=== PATIENT | male | born 1930 | race Caucasian/White ===

== ENCOUNTER 2017-01-11 08:16 | Emergency (ER) | payer MEDICARE ==
[2017-01-11 08:20] VITALS: BP 174/78
[2017-01-11 08:44] LABS: BASO # 0.1 x10^3/uL (0.0-0.2); BASO % 1 % (0-3); EOS # 0.2 x10^3/uL (0.0-0.7); EOS % 3 % (0-3); HEMATOCRIT 28.1 % (39.0-53.0); HEMOGLOBIN 9.4 g/dL (13.0-17.5); LYMPH # 1.5 x10^3/uL (1.0-4.8); LYMPH % 24 % (24-48); MEAN CORPUSCULAR HEMOGLOBIN 33 pg (25-35); MEAN CORPUSCULAR HGB CONC 33 g/dL (31-37); MEAN CORPUSCULAR VOLUME 100 fL (79-100); MONO # 0.6 x10^3/uL (0.0-1.1); MONO % 10 % (0-9); NEUT # 3.8 x10^3uL (1.8-7.7); NEUT % 62 % (31-73); PLATELET COUNT 159 x10^3/uL (140-400); RED BLOOD COUNT 2.82 x10^6/uL (4.30-5.70); RED CELL DISTRIBUTION WIDTH 14.7 % (11.5-14.5); WHITE BLOOD COUNT 6.1 x10^3/uL (4.0-11.0)
[2017-01-11 08:48] LABS: CALCIUM 8.5 mg/dL (8.5-10.1); CREATININE 2.6 mg/dL (0.7-1.3); GFR 23.4; MAGNESIUM 1.6 mg/dL (1.8-2.4); POTASSIUM 5.5 mmol/L (3.5-5.1)
--- NOTE | 2017-01-11 09:13 | RAD ---
Clinical indications: Altered mental status is morning. Comparison: None available. Technique: Noncontrast axial cross sectional scanning of the head was performed. PQRS Compliance Statement: One or more of the following individualized dose reduction techniques were utilized for this examination: 1. Automated exposure control 2. Adjustment of the mA and/or kV according to patient size 3. Use of iterative reconstruction technique Comparison: None available. Findings: No acute intracranial hemorrhage or midline shift or mass-effect or hydrocephalus or extra-axial fluid collection is seen. There is moderate bilateral periventricular white matter hypodensity consistent with chronic small vessel ischemic disease in this age group. Generalized cerebral atrophy is seen. Ventriculomegaly is seen commensurate with the amount of cerebral atrophy. No skull fracture or pneumocephalus is seen. No opacification of the mastoid sinuses or the paranasal sinuses is seen. There is a small polyp of the anterior wall of the left maxillary sinus measuring 9 mm. The maxillary sinuses are not completely seen in this study. Impression: No acute intracranial hemorrhage is seen. Moderate chronic small vessel ischemic disease of the white matter.
[2017-01-11 09:39] LABS: BILIRUBIN,URINE NEG (NEG); CLARITY,URINE CLOUDY; COLOR,URINE YELLOW; GLUCOSE,URINE NEG (NEG)
[2017-01-11 09:40] LABS: BACTERIA,URINE MANY /HPF (0-FEW); NITRITE,URINE NEG (NEG); RBC,URINE RARE /HPF (0-2); UROBILINOGEN,URINE 0.2 mg/dL (0.2 mg/dL); WBC,URINE >40 /HPF (0-4)
[2017-01-11] MEDS ORDERED: cefTRIAXone SODIUM 1 GM VIAL IV ONE (10:41)
[2017-01-11] MEDS ORDERED: IV NORMAL SALINE 50ML 50 ML ONE (10:42)
--- NOTE | 2017-01-11 11:07 | PHYS DOC ---
Past History Past Medical History: Other Past Surgical History: Other Alcohol Use: None Drug Use: None Adult General Chief Complaint Chief Complaint: LOSS OF CONSCIOUSNESS HPI HPI Patient is a 86 year old M who presents with decreased level of consciousness. Jose has dementia at baseline however he is able to verbalize and understand spoken words. He does live at a half-way. This morning around 5:30 AM Jose received his normal Ultram for pain. Thereafter Jose became less responsive. He continued to move his extremities and open his eyes. However he has been unable to verbalize since that time. Review of Systems Review of Systems Unable to obtain due to current condition Family History Family History Noncontributory Current Medications Current Medications Medications reviewed Current Medications Medications (Trade) Dose Ordered Sig/Misti Start Time Stop Time Status Last Admin Dose Admin Ceftriaxone Sodium 1 gm/ Sodium Chloride 50 ml @ 100 mls/hr 1X ONCE 01/11/17 10:00 01/11/17 10:29 UNV Ceftriaxone Sodium (Rocephin) 1 gm STK-MED ONCE 01/11/17 10:41 01/11/17 10:42 DC Magnesium Sulfate/ Dextrose 100 ml @ 100 mls/hr 1X ONCE 01/11/17 09:15 01/11/17 10:14 UNV Sodium Chloride 50 ml @ As Directed STK-MED ONCE 01/11/17 10:42 01/11/17 10:43 DC Allergies Allergies Allergies Coded Allergies Type Severity Reaction Last Updated Verified No Known Drug Allergies 01/11/17 No Physical Exam Physical Exam Constitutional: Well developed, well nourished, no acute distress, non-toxic appearance. [] HENT: atraumatic Eyes: PERRLA, EOMI, conjunctiva normal, no discharge. [] Neck: Normal range of motion, no tenderness, supple, no stridor. [] Cardiovascular:Heart rate regular rhythm, Lungs & Thorax: Bilateral breath sounds clear to auscultation [] exam limited due to decreased level of consciousness Abdomen: Bowel sounds normal, soft, no tenderness, no masses, no pulsatile masses. [] Skin: Warm, dry, no erythema, no rash. [] Extremities: No tenderness, no cyanosis, no clubbing, 2-3+ pitting edema in bilateral lower extremities Neurologic: No verbal response to any stimulus. Open his eyes spontaneously. Moves all limbs spontaneously Psychologic: Unable to assess Current Patient Data Vital Signs Vital Signs Date Time Temp Pulse Resp B/P (MAP) Pulse Ox O2 Delivery O2 Flow Rate FiO2 01/11/17 08:20 97.6 55 15 96 Room Air Lab Results Laboratory Tests Test 01/11/17 08:25 01/11/17 09:20 White Blood Count 6.1 x10^3/uL (4.0-11.0) Red Blood Count 2.82 x10^6/uL (4.30-5.70) L Hemoglobin 9.4 g/dL (13.0-17.5) L Hematocrit 28.1 % (39.0-53.0) L Mean Corpuscular Volume 100 fL (79-100) Mean Corpuscular Hemoglobin 33 pg (25-35) Mean Corpuscular Hemoglobin Concent 33 g/dL (31-37) Red Cell Distribution Width 14.7 % (11.5-14.5) H Platelet Count 159 x10^3/uL (140-400) Neutrophils (%) (Auto) 62 % (31-73) Lymphocytes (%) (Auto) 24 % (24-48) Monocytes (%) (Auto) 10 % (0-9) H Eosinophils (%) (Auto) 3 % (0-3) Basophils (%) (Auto) 1 % (0-3) Neutrophils # (Auto) 3.8 x10^3uL (1.8-7.7) Lymphocytes # (Auto) 1.5 x10^3/uL (1.0-4.8) Monocytes # (Auto) 0.6 x10^3/uL (0.0-1.1) Eosinophils # (Auto) 0.2 x10^3/uL (0.0-0.7) Basophils # (Auto) 0.1 x10^3/uL (0.0-0.2) Sodium Level 138 mmol/L (136-145) Potassium Level 5.5 mmol/L (3.5-5.1) H Chloride Level 106 mmol/L (98-107) Carbon Dioxide Level 26 mmol/L (21-32) Anion Gap 6 (6-14) Blood Urea Nitrogen 59 mg/dL (8-26) H Creatinine 2.6 mg/dL (0.7-1.3) H Estimated GFR (Cockcroft-Gault) 23.4 Glucose Level 82 mg/dL (70-99) Calcium Level 8.5 mg/dL (8.5-10.1) Magnesium Level 1.6 mg/dL (1.8-2.4) L Urine Collection Type Unknown Urine Color Yellow Urine Clarity Cloudy Urine pH 6.5 Urine Specific [place] 1.010 Urine Protein 100 mg/dl (NEG-TRACE) Urine Glucose (UA) Neg mg/dL (NEG) Urine Ketones (Stick) Neg mg/dL (NEG) Urine Blood Mod (NEG) Urine Nitrite Neg (NEG) Urine Bilirubin Neg (NEG) Urine Urobilinogen Dipstick 0.2 mg/dL (0.2 mg/dL) Urine Leukocyte Esterase Large (NEG) Urine RBC Rare /HPF (0-2) Urine WBC >40 /HPF (0-4) Urine Squamous Epithelial Cells None /LPF Urine Bacteria Many /HPF (0-FEW) Urine Mucus Slight /LPF EKG EKG Sinus bradycardia with left anterior fascicular block Radiology/Procedures Radiology/Procedures Head CT showed no acute disease Course & Med Decision Making Course & Med Decision Making Pertinent Labs and Imaging studies reviewed. (See chart for details) Jose did receive Rocephin 1 g IV prior to transfer. He was transferred in stable condition. Dragon Disclaimer Dragon Disclaimer This chart was dictated in whole or in part using Voice Recognition software in a busy, high-work load, and often noisy Emergency Department environment. It may contain unintended and wholly unrecognized errors or omissions. Departure Departure: Impression: Primary Impression: Altered mental status, unspecified Additional Impression: UTI (urinary tract infection) Referrals: WOODY MONK MD (PCP) Problem Qualifiers Primary Impression: Altered mental status, unspecified Altered mental status type: delirium Qualified Codes: R41.0 - Disorientation , unspecified Additional Impression: UTI (urinary tract infection) Urinary tract infection type: catheter-associated UTI Indwelling urinary catheter type: indwelling urethral catheter Encounter type: initial encounter Qualified Codes: T83.511A - Infection and inflammatory reaction due to indwelling urethral catheter, initial encounter; N39.0 - Urinary tract infection, site not specified MARTÍN VALENTIN MD Jan 11, 2017 11:07
[2017-01-11] MEDS ORDERED: MAGNESIUM SULFATE 1GM 100 ML IV ONE (11:15)
--- NOTE | 2017-01-12 03:27 | EKG ---
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
== END 2017-01-11 11:37 | disposition short-term general hospital (02) ==
LOC: ER 08:16
DX: R41.0 Disorientation, unspecified (principal); T83.511A Infection and inflammatory reaction due to indwelling urethral catheter, initial encounter; N39.0 Urinary tract infection, site not specified; F03.90 Unspecified dementia, unspecified severity, without behavioral disturbance, psychotic disturbance, mood disturbance, and anxiety
CPT/HCPCS: 36415; 70450; 80048; 81001; 83735; 85025; 93005; 96365; 99285; J0696

== ENCOUNTER 2017-04-18 20:51 | Inpatient (IN) | payer MEDICARE ==
[~2017-04-18] VITALS: Ht 185.4 cm; Wt 99.0 kg
[2017-04-18 21:52] LABS: BASO # 0.1 x10^3/uL (0.0-0.2); BASO % 1 % (0-3); EOS # 0.4 x10^3/uL (0.0-0.7); EOS % 7 % (0-3); HEMATOCRIT 28.6 % (39.0-53.0); HEMOGLOBIN 9.4 g/dL (13.0-17.5); LYMPH # 1.6 x10^3/uL (1.0-4.8); LYMPH % 27 % (24-48); MEAN CORPUSCULAR HEMOGLOBIN 33 pg (25-35); MEAN CORPUSCULAR HGB CONC 33 g/dL (31-37); MEAN CORPUSCULAR VOLUME 100 fL (79-100); MONO # 0.7 x10^3/uL (0.0-1.1); MONO % 11 % (0-9); NEUT # 3.1 x10^3uL (1.8-7.7); NEUT % 54 % (31-73); PLATELET COUNT 180 x10^3/uL (140-400); RED BLOOD COUNT 2.86 x10^6/uL (4.30-5.70); RED CELL DISTRIBUTION WIDTH 13.8 % (11.5-14.5); WHITE BLOOD COUNT 5.8 x10^3/uL (4.0-11.0)
[2017-04-18 22:09] LABS: ALBUMIN 2.5 g/dL (3.4-5.0); CALCIUM 8.8 mg/dL (8.5-10.1); CREATININE 3.3 mg/dL (0.7-1.3); DIRECT BILIRUBIN 0.1 mg/dL (0.0-0.2); GFR 17.7; POTASSIUM 4.8 mmol/L (3.5-5.1); TOTAL BILIRUBIN 0.2 mg/dL (0.2-1.0); TOTAL PROTEIN 6.4 g/dL (6.4-8.2)
[2017-04-18 22:09] LABS: BARBITURATES NEG (NEG); BENZODIAZEPINES NEG (NEG); CANNABINOIDS NEG (NEG); COCAINE NEG (NEG); METHADONE NEG (NEG); OPIATES NEG (NEG); PHENCYCLIDINE NEG (NEG)
[2017-04-18 22:11] LABS: ACETAMIN 4.3 mcg/mL (10-30); ETHANOL < 10 mg/dL (0-10); SALIC 1.3 mg/dL (2.8-20.0)
[2017-04-18 22:12] LABS: AMPHETAMINE/METHAMPHETAMINE NEG (NEG)
[2017-04-18 22:13] LABS: BILIRUBIN,URINE NEG (NEG); CLARITY,URINE HAZY; COLOR,URINE YELLOW; GLUCOSE,URINE NEG (NEG)
[2017-04-18 22:14] LABS: BACTERIA,URINE MOD /HPF (0-FEW); NITRITE,URINE NEG (NEG); SQUAMOUS EPITHELIAL CELL,UR OCC /LPF; UROBILINOGEN,URINE 0.2 mg/dL (0.2 mg/dL)
[2017-04-18 22:15] LABS: AMORPHOUS SEDIMENT,UR PRESENT /HPF
--- NOTE | 2017-04-18 22:35 | PHYS DOC ---
General Chief Complaint: SUICDAL IDEATION Stated Complaint: SI Time Seen by MD: 20:56 Source: patient, EMS, other ([facility] nurse Yulia) Exam Limitations: clinical condition Problems: History of Present Illness Initial Comments Patient is an 87-year-old male brought to the ED from [facility] after being deferred by the [place] hospital for evaluation of suicidal ideation. Very little information sent from a [facility]. EMS reports that the patient expressed that she wanted to to usp staff tonight and restated this wish to EMS. They attempted to take the patient to the [place] who diverted the patient to this facility. On ED arrival the patient is noted to talk very loudly and at first appears angry however he is simply very hard of hearing. He was asked multiple times if he wanted to each time stating that yes in fact he did want to . When asked if he had a plan he denied having such, "hell yeah I want to but it's not like I'm going to go to kill myself." The patient does appear to have a depressed affect, he appears to be overall lucid however does vacillate into periods of apparent confusion. When asked if he is having any discomfort and complains of pain only at his left temporal region where he underwent recent skin cancer biopsies or removals. Material sent from the [facility] were limited and not much was known about the patient upon arrival. He did specifically deny any chest pain, shortness of breath, nausea vomiting diaphoresis arm or neck symptoms. skilled nursing records indicate that the patient took eliquis up until March 29 when it was discontinued for unknown reason. Records also indicate that the patient takes 20 mg of Lasix daily, there are no records of prior congestive heart failure or coronary artery disease. ED vitals: 97.4, 64, 20, 146/57, 97% room air 2347: I personally spoke with the patient's [facility] caregiver over the phone Rachana, she did reveal that the patient is a full DNR and that the patient requests was discontinued for several reasons including his facial skin procedures as well as his physicians felt it was no longer needed as the patient had exhibited some "arrhythmias" in the past however none recently. Timing/Duration: unsure Severity: mild Modifying Factors: improves with other Associated Symptoms: other Allergies: Coded Allergies: No Known Drug Allergies (Unverified , 01/11/17) Past Medical History Medical History: other (major depressive disorder, chronic kidney disease stage IV, DVT, retinopathy, glaucoma, macular degeneration, B12 deficiency, dementia, hypertension, generalized weakness, neurogenic bladder, UTI, difficulty walking, frequent falls) Surgical History: other (left sided facial skin cancer biopsies versus removals otherwise unknown past surgical history) Social History Smoker: other (unknown smoking history) Alcohol: other (unknown alcohol history) Drugs: other (unknown drug history) Review of Systems Constitutional: denies chills, denies fever Respiratory: denies cough, denies orthopnea, denies shortness of breath, denies wheezing Cardiovascular: denies chest pain, denies palpitations Gastrointestinal: denies diarrhea, denies vomiting Genitourinary: denies discharge, denies hematuria Musculoskeletal: denies back pain, denies joint swelling, denies neck pain Psychiatric/Neurological: see HPI Hematologic/Lymphatic: see HPI All Other Systems: Reviewed and Negative (accuracy of review of systems is in question with patient's dementia) Physical Exam General Appearance: no apparent distress (patient's only complaint is pain at the site of recent facial procedures) Ear, Nose, Throat: normal ENT inspection (very hard of hearing), normal pharynx , other (2 Band-Aids over left religious at sites of recent skin cancer biopsies/ removals) Neck: non-tender, supple Respiratory: other (slight rales at the bases left greater than right with good air movement and no wheezes no accessory muscle use or respiratory distress , chest nontender) Cardiovascular: normal peripheral pulses, regular rate, rhythm Gastrointestinal: non tender, soft Back: no CVA tenderness, no vertebral tenderness Extremities: non-tender, pelvis stable, other (one plus pitting lower extremity edema, no calf tenderness) Neurologic/Psychiatric: salvage clerk II-XII nml as tested, no motor/sensory deficits, alert, depressed affect ("hell yeah I want to , it's not like I'm going to go kill myself or any thing"), other (patient very hard of hearing, when things are explained to him he is cooperative and no stated side plan, confused at times no lateralizing neuro deficits) Skin: normal color, warm/dry Orders, Labs, Meds EKG: Normal sinus rhythm 64 bpm, baseline wander artifact in the anterior leads with artifact versus ST segment elevation in V1 as well as ST segment elevation in V2 interpreted by me. I did discuss this EKG finding with body shop floorperson business objects developer Dr. Chacon however he is in agreement that the patient is not a candidate for the cardiac catheter lab. Due to the EKG findings I did add cardiac enzymes to the already pending SBH/SI studies. AP chest: Although portable study cardiac silhouette does appear to be mildly enlarged, small left-sided pleural effusion with cephalization of the vessels. Interpreted by me. BNP will be added to labs. 2242: Labs reviewed, although not a clean catch UTI suspected. Cephalexin by mouth given, patient is medically cleared for telemetry psych evaluation of suicidality. That evaluation has been requested. 2339: I consulted Dr. Chacon via phone to discuss patient's troponin 0.200. BNP was pending at that time, Dr. Wilson recommended heparinization and follow labs as there was not much that could be done. Requested that I admit to HOSPITALIST and he agreed to see the patient tomorrow as consultation. Tele- psych evaluation put on hold for now. 2355: I discussed the patient with body shop floorperson hospitalist Dr. Wei. After thorough discussion of the patient's known history, ED presentation, and the ED results. He recommends inpatient ICU admission and is agreeable to heparin bolus and drip. He was also agreeable with the Rocephin intravenously for what appears to be a UTI even though specimen contaminated with squamous cells. A trial of Lasix with cardiology and psychiatry consultations for tomorrow. Pertinent labs: Hemoglobin 9.4 normocytic, BUN 70, creatinine 3.3, troponin 0.200, BNP 3195, albumin 2.5, urinalysis with squamous epithelial contamination and grossly positive for products of infection Patient received heparin bolus and initiation of heparin drip as well as 1 g of Rocephin intravenously, and 20 mg of Lasix throughout the ED course. Impressions: Suicidal ideation Elevated troponin and questionable STEMI EKG changes not a candidate for catheter lab and currently heparinized Acute on chronic CHF receiving Lasix Urinary tract infection on Rocephin Chronic kidney disease stage IV Moderate to severe protein malnutrition Dementia Normocytic anemia Departure Time of Disposition: 23:55 Disposition: 09 ADMITTED INPATIENT Condition: GUARDED Additional Instructions: Inpatient ICU admission Dr. Wei is accepting. TOYA YANEZ DO Apr 18, 2017 22:35
[2017-04-18] MEDS ORDERED: CEPHALEXIN 250 MG CAPSULE PO ONE (23:15)
[2017-04-18 23:23] LABS: VAL ACID 13 mcg/mL (50-100)
--- NOTE | 2017-04-18 23:47 | EKG ---
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
[2017-04-19] VITALS (19 sets, daily range): BP systolic 105–187; BP diastolic 55–89
[2017-04-19] MEDS ORDERED: ONDANSETRON PF 4 MG/2 ML VIAL. IV PRN (00:15)
[2017-04-19] MEDS ORDERED: ACETAMINOPHEN 325 MG TABLET PO PRN (00:15)
[2017-04-19] MEDS ORDERED: MORPHINE SULFATE 2 MG/ML DISP.SYRIN. IV PRN (00:15)
[2017-04-19] MEDS ORDERED: NITROGLYCERIN SUBLINGUAL 0.4 MG BOTTLE OF 25. SL PRN (00:15)
[2017-04-19] MEDS ORDERED: cefTRIAXone IV Push 1 GM VIAL. IVP ONE (00:38)
[2017-04-19] MEDS ORDERED: HEPARIN for IV BOLUS 10,000 UNIT/10 ML VIAL. IV ONE (00:45)
--- NOTE | 2017-04-19 01:45 | NUR ---
Pt admitted to ICU 4 at this time. Pt was sent to our ER from [facility] of expressing thoughts of SI to the staff there. Pt here said he would kill himself but probably could not actually do it. While in the Er pt was also found to have a UTI and a elevated troponin of 0.2000. Pt is alert but disoriented on some questions. Pt is unable to ambulate and at [facility] they use a lift to move pt. Pt denies CP or SOB at admission. Pt placed in 1:1 SI precautions. Will repeat Trop's and monitor cardiac rhythms.
[2017-04-19] MEDS: HEPARIN 25,000UTS/500ML PREMIX 500 ML IV PRN ×2 (02:16→22:27)
[2017-04-19] MEDS ORDERED: FERR-26 PO (05:31)
[2017-04-19] MEDS ORDERED: DIVA500T9 PO (05:31)
[2017-04-19] MEDS ORDERED: PATI8.4P PO (05:31)
[2017-04-19] MEDS ORDERED: FURO20TA3 PO (05:31)
[2017-04-19] MEDS ORDERED: MEMA10TA PO (05:31)
[2017-04-19] MEDS ORDERED: HYDR-2867 PO (05:31)
[2017-04-19] MEDS ORDERED: CYAN10005 PO (05:31)
[2017-04-19] MEDS ORDERED: TRAM50TA PO (05:31)
[2017-04-19] MEDS ORDERED: ACET500T33 PO (05:31)
[2017-04-19] MEDS ORDERED: TRAZ50TA15 PO (05:31)
[2017-04-19] MEDS ORDERED: CHOL100013 PO (05:31)
[2017-04-19] MEDS ORDERED: SERT25TA PO (05:31)
[2017-04-19] MEDS ORDERED: FUROSEMIDE 40 MG/4 ML VIAL IVP SCH (06:00)
[2017-04-19] MEDS: FUROSEMIDE 20 MG/2 ML VIAL IVP SCH ×3 (06:06→22:02)
--- NOTE | 2017-04-19 07:16 | RAD ---
Portable chest, 04/18/2017: History: Altered mental status, congestion, fatigue Comparison is made to a study from 01/06/2011. The heart size is normal. There is calcific plaquing and tortuosity of the thoracic aorta. The pulmonary vascularity is normal. Blunting of the left lateral costophrenic angle is new. This may be due to a small amount of pleural fluid, scarring or atelectasis. The right chest is clear. Surgical rods and screws are noted in the spine near the thoracolumbar junction. IMPRESSION: 1. New blunting of left lateral costophrenic angle compatible with a small amount of pleural fluid versus scarring. 2. Aortic atherosclerosis and ectasia.
--- NOTE | 2017-04-19 09:15 | PDOC2 ---
CONSULT Date of Admission DATE: 04/19/17 TIME: 09:13 Reason for Consult: elevated troponin Problem List Problems Medical Problems: (1) CKD (chronic kidney disease), stage IV Status: Acute (2) Elevated troponin Status: Acute (3) Suicidal ideation Status: Acute (4) UTI (urinary tract infection) Status: Acute History of Present Illness Mr Smith is an 87-year-old male who [facility] for evaluation and admission to [facility] secondary to suicidal ideation. He was initially transported to [place] who diverted him here. He was noted to have an abnormal EKG so troponin was drawn which was mildly elevated so consult was called. He is currently very sleepy, wakes to verbal stimulus but answering only minimal questions. He denies chest pain, dyspnea or palpitations. Most of his history is obtained from the chart. Past Medical History major depressive disorder, chronic kidney disease stage IV, DVT, retinopathy, glaucoma, macular degeneration, B12 deficiency, anemia, dementia, hypertension, generalized weakness, neurogenic bladder, UTI, difficulty walking, frequent falls Past Surgical History left sided facial skin cancer biopsies versus removals otherwise unknown past surgical history Family History non contributory due to age Social History unknown. alf resident. Current Medications Current Medications Cephalexin HCl (Keflex) 500 mg 1X ONCE PO Last administered on 04/18/17at 23:55 ; Start 04/18/17 at 23:15; Stop 04/18/17 at 23:16; Status DC Heparin Sodium (Porcine) (Heparin Sodium) 4,000 unit 1X ONCE IV Last administered on 04/19/17at 01:18; Start 04/19/17 at 00:45; Stop 04/19/17 at 00:47 ; Status DC Heparin Sodium/ Dextrose 500 ml @ 0 mls/hr CONT PRN IV SEE I/O RECORD Last administered on 04/19/17at 02:16; Start 04/19/17 at 00:45 Ondansetron HCl (Zofran) 4 mg PRN Q4HRS PRN IV NAUSEA/VOMITING; Start 04/19/17 at 00:15; Stop 04/20/17 at 00:14 Morphine Sulfate (Morphine 2mg Syringe) 2 mg PRN Q2HR PRN IV PAIN; Start at 00:15; Stop 04/20/17 at 00:14 Acetaminophen (Tylenol) 650 mg PRN Q4HRS PRN PO FEVER; Start 04/19/17 at 00:15 ; Stop 04/20/17 at 00:14 Nitroglycerin (Nitrostat) 0.4 mg PRN Q5MIN PRN SL CHEST PAIN; Start 04/19/17 at 00:15; Stop 04/20/17 at 00:14 Ceftriaxone Sodium 1 gm/ Sodium Chloride 50 ml @ 100 mls/hr DAILY IV ; Start at 09:00; Status UNV Ceftriaxone Sodium 1 gm/ Sodium Chloride 50 ml @ 100 mls/hr 1X ONCE IV Last administered on 04/19/17at 01:00; Start 04/19/17 at 00:45; Stop 04/19/17 at 01:14 ; Status DC Ceftriaxone Sodium (Rocephin) 1 gm STK-MED ONCE IVP ; Start 04/19/17 at 00:38; Stop 04/19/17 at 00:39; Status DC Furosemide (Lasix) 20 mg Q8HRS IVP Last administered on 04/19/17at 01:20; Start 04/19/17 at 06:00; Stop 04/19/17 at 06:00; Status DC Furosemide (Lasix) 20 mg Q8HRS IVP Last administered on 04/19/17at 06:06; Start 04/19/17 at 06:00 Ceftriaxone Sodium (Rocephin) 1 gm Q24H IVP ; Start 04/19/17 at 22:00 Active Scripts Active Reported Tylenol Extra Strength (Acetaminophen) 500 Mg Tablet 500 Mg PO PRN Q6HRS PRN Vitamin D (Cholecalciferol (Vitamin D3)) 1,000 Unit Capsule 1 Cap PO DAILY Vitamin B-12 (Cyanocobalamin (Vitamin B-12)) 1,000 Mcg Tablet 1,000 Mcg PO DAILY Divalproex Sodium 500 Mg Tablet.dr 125 Mg PO DAILY Ferrous Sulfate 325 Mg Tablet 1 Tab PO DAILY Furosemide 20 Mg Tablet 20 Mg PO DAILY Hydralazine Hcl 10 Mg Tablet 1 Tab PO TID Namenda (Memantine Hcl) 10 Mg Tablet 10 Mg PO DAILY Veltassa (Patiromer Calcium Sorbitex) 8.4 Gm Powd.pack 8.4 Gm PO HS Zoloft (Sertraline Hcl) 25 Mg Tablet 25 Mg PO DAILY Tramadol Hcl (Tramadol HCl) 50 Mg Tablet 50 Mg PO Q12HR PRN Trazodone Hcl 50 Mg Tablet 1 Tab PO PRN QHS Allergies: Coded Allergies: No Known Drug Allergies (Unverified , 01/11/17) Review of System as per HPI otherwise unobtainable. General: No acute distress HEENT: Atraumatic, EOMI Lungs: Clear to auscultation, Normal air movement Heart: Regular rate, Normal S1, Normal S2, Other (no gallops, clicks or rubs) Abdomen: Normal bowel sounds, Soft Extremities: No cyanosis, Normal pulses, Other (2+ edema) Psych/Mental Status: Other (flat affect) VITALS Vital Signs Date Time Temp Pulse Resp B/P (MAP) Pulse Ox O2 Delivery O2 Flow Rate FiO2 04/19/17 07:43 97.4 04/19/17 06:00 56 18 149/74 (99) 99 Room Air Labs Laboratory Tests Test 04/18/17 21:20 04/18/17 21:21 04/18/17 22:10 04/19/17 05:55 White Blood Count 5.8 x10^3/uL (4.0-11.0) Red Blood Count 2.86 x10^6/uL (4.30-5.70) Hemoglobin 9.4 g/dL (13.0-17.5) Hematocrit 28.6 % (39.0-53.0) Mean Corpuscular Volume 100 fL (79-100) Mean Corpuscular Hemoglobin 33 pg (25-35) Mean Corpuscular Hemoglobin Concent 33 g/dL (31-37) Red Cell Distribution Width 13.8 % (11.5-14.5) Platelet Count 180 x10^3/uL (140-400) Neutrophils (%) (Auto) 54 % (31-73) Lymphocytes (%) (Auto) 27 % (24-48) Monocytes (%) (Auto) 11 % (0-9) Eosinophils (%) (Auto) 7 % (0-3) Basophils (%) (Auto) 1 % (0-3) Neutrophils # (Auto) 3.1 x10^3uL (1.8-7.7) Lymphocytes # (Auto) 1.6 x10^3/uL (1.0-4.8) Monocytes # (Auto) 0.7 x10^3/uL (0.0-1.1) Eosinophils # (Auto) 0.4 x10^3/uL (0.0-0.7) Basophils # (Auto) 0.1 x10^3/uL (0.0-0.2) Sodium Level 140 mmol/L (136-145) Potassium Level 4.8 mmol/L (3.5-5.1) Chloride Level 106 mmol/L (98-107) Carbon Dioxide Level 24 mmol/L (21-32) Anion Gap 10 (6-14) Blood Urea Nitrogen 70 mg/dL (8-26) Creatinine 3.3 mg/dL (0.7-1.3) Estimated GFR (Cockcroft-Gault) 17.7 Glucose Level 171 mg/dL (70-99) Calcium Level 8.8 mg/dL (8.5-10.1) Total Bilirubin 0.2 mg/dL (0.2-1.0) Direct Bilirubin 0.1 mg/dL (0.0-0.2) Aspartate Amino Transf (AST/SGOT) 17 U/L (15-37) Alanine Aminotransferase (ALT/SGPT) 18 U/L (16-63) Alkaline Phosphatase 129 U/L (46-116) Total Protein 6.4 g/dL (6.4-8.2) Albumin 2.5 g/dL (3.4-5.0) Salicylates Level 1.3 mg/dL (2.8-20.0) Salicylate Last Dose Date 04/18/17 Salicylate Last Dose Time Unknown Acetaminophen Level 4.3 mcg/mL (10-30) Acetaminophen Last Dose Date 04/18/17 Acetaminophen Last Dose Time Unknown Ethyl Alcohol Level < 10 mg/dL (0-10) Urine Collection Type Unknown Urine Color Yellow Urine Clarity Hazy Urine pH 5.5 Urine Specific [place] 1.015 Urine Protein >100 mg/dl (NEG-TRACE) Urine Glucose (UA) Neg mg/dL (NEG) Urine Ketones (Stick) Neg mg/dL (NEG) Urine Blood Small (NEG) Urine Nitrite Neg (NEG) Urine Bilirubin Neg (NEG) Urine Urobilinogen Dipstick 0.2 mg/dL (0.2 mg/dL) Urine Leukocyte Esterase Mod (NEG) Urine RBC 3-5 /HPF (0-2) Urine WBC 11-20 /HPF (0-4) Urine Squamous Epithelial Cells Occ /LPF Urine Amorphous Sediment Present /HPF Urine Bacteria Mod /HPF (0-FEW) Urine Mucus Slight /LPF Urine Opiates Screen Neg (NEG) Urine Methadone Screen Neg (NEG) Urine Barbiturates Neg (NEG) Urine Phencyclidine Screen Neg (NEG) Urine Amphetamine/Methamphetamine Neg (NEG) Urine Benzodiazepines Screen Neg (NEG) Urine Cocaine Screen Neg (NEG) Urine Cannabinoids Screen Neg (NEG) Urine Ethyl Alcohol Neg (NEG) Prothrombin Time 11.0 SEC (9.4-11.4) Prothromb Time International Ratio 1.1 (0.9-1.1) Activated Partial Thromboplast Time 23 SEC (23-33) Creatine Kinase 67 U/L (39-308) Troponin I Quantitative 0.200 ng/mL (0-0.055) 0.206 ng/mL (0-0.055) ED-Kbu-N-Type Natriuretic Peptide 3195 pg/mL (0-449) Valproic Acid (Depakene) Level 13 mcg/mL (50-100) Valproic Acid Last Dose Date 04/18/2017 Valproic Acid Last Dose Time 0000 Test 04/19/17 08:05 Activated Partial Thromboplast Time 121 SEC (23-33) Images CXR - IMPRESSION: 1. New blunting of left lateral costophrenic angle compatible with a small amount of pleural fluid versus scarring. 2. Aortic atherosclerosis and ectasia. EKG - sinus rhythm, LAFB / IVCD, non specific abnormalities Assessment/Plan 1. Mildly elevated troponin - angina free. Not candidate for cardiac cath at this time due to renal function and psychological status. Continue medical therapy with aspirin, check lipids and add statin as indicated. No beta randal due to bradycardia. Check echo for LV function and wall motion. 2. accelerated hypertension - add hydralazine. 3. CKD stage 4 - monitor labs 4. major depression / SI - per PCP , Psych Problems: EVANGELINA SMITH APRN Apr 19, 2017 09:15
[2017-04-19] MEDS ORDERED: amLODIPine BESYLATE 10 MG TABLET PO ONE (10:30)
[2017-04-19] MEDS: ASPIRIN ENTERIC COATED 81 MG TABLET.DR. PO SCH (10:41)
--- NOTE | 2017-04-19 12:12 | NUR ---
Pt assessed and VS per flowsheet. Pt is quiet this am, only nodding head when asked questions. Pt appears depressed but denies SI when asked this morning. Pt's came to visit but he would not talk to her. Informed of recent VA; stated she would be back with her daughter tomorrow morning and we could talk with both of them at that time. Cardiology here to see pt on rounds this am, wanted to continue Heparin gtt at this time. Pt has chronic garland catheter d/t neurogenic bladder. Pt turned every two hours and as needed. Pt's BP was elevated this am; received one time order for Norvasc 10mg PO. Pt refuses any food or drink at this time. Will continue to monitor.
[2017-04-19] MEDS ORDERED: traMADol 50 MG TABLET PO PRN (12:45)
[2017-04-19] MEDS ORDERED: traZODone 50 MG TABLET. PO PRN (12:45)
[2017-04-19] MEDS: hydrALAZINE 25 MG TABLET PO SCH ×2 (12:45→22:11)
[2017-04-19] MEDS ORDERED: ACETAMINOPHEN 500 MG TABLET PO PRN (12:45)
--- NOTE | 2017-04-19 13:06 | NUR ---
Scheduled Hydralazine not given, Norvasc given this am and BP is 125/60 now. Will continue to monitor.
[2017-04-19] MEDS ORDERED: hydrALAZINE 10 MG TABLET PO SCH (14:00)
--- NOTE | 2017-04-19 18:24 | PDOC ---
Exam Note: Hermilo Note: Please also refer to the separate dictated note~for this date of service dictated separately.~Patient seen individually. Discussed the patient with Nursing staff reviewed the chart.~Reviewed interim history and current functioning. Reviewed vital signs,~Labs/ Radiology~and current medications noted below. Continue current treatment with the changes noted in the dictated addendum note Assessment: Vital Signs: Vital Signs Date Time Temp Pulse Resp B/P (MAP) Pulse Ox O2 Delivery O2 Flow Rate FiO2 04/19/17 17:12 64 17 136/58 (84) 98 Room Air 04/19/17 11:32 97.0 I&O Intake and Output 04/19/17 07:00 Intake Total 111 ml Output Total 1050 ml Balance -939 ml Intake Oral 0 ml IV Total 111 ml Output Urine Total 1050 ml Labs: Laboratory Tests Test 04/18/17 21:20 04/18/17 21:21 04/18/17 22:10 04/19/17 05:55 White Blood Count 5.8 x10^3/uL (4.0-11.0) Red Blood Count 2.86 x10^6/uL (4.30-5.70) L Hemoglobin 9.4 g/dL (13.0-17.5) L Hematocrit 28.6 % (39.0-53.0) L Mean Corpuscular Volume 100 fL (79-100) Mean Corpuscular Hemoglobin 33 pg (25-35) Mean Corpuscular Hemoglobin Concent 33 g/dL (31-37) Red Cell Distribution Width 13.8 % (11.5-14.5) Platelet Count 180 x10^3/uL (140-400) Neutrophils (%) (Auto) 54 % (31-73) Lymphocytes (%) (Auto) 27 % (24-48) Monocytes (%) (Auto) 11 % (0-9) H Eosinophils (%) (Auto) 7 % (0-3) H Basophils (%) (Auto) 1 % (0-3) Neutrophils # (Auto) 3.1 x10^3uL (1.8-7.7) Lymphocytes # (Auto) 1.6 x10^3/uL (1.0-4.8) Monocytes # (Auto) 0.7 x10^3/uL (0.0-1.1) Eosinophils # (Auto) 0.4 x10^3/uL (0.0-0.7) Basophils # (Auto) 0.1 x10^3/uL (0.0-0.2) Sodium Level 140 mmol/L (136-145) Potassium Level 4.8 mmol/L (3.5-5.1) Chloride Level 106 mmol/L (98-107) Carbon Dioxide Level 24 mmol/L (21-32) Anion Gap 10 (6-14) Blood Urea Nitrogen 70 mg/dL (8-26) H Creatinine 3.3 mg/dL (0.7-1.3) H Estimated GFR (Cockcroft-Gault) 17.7 Glucose Level 171 mg/dL (70-99) H Calcium Level 8.8 mg/dL (8.5-10.1) Total Bilirubin 0.2 mg/dL (0.2-1.0) Direct Bilirubin 0.1 mg/dL (0.0-0.2) Aspartate Amino Transferase (AST) 17 U/L (15-37) Alanine Aminotransferase (ALT) 18 U/L (16-63) Alkaline Phosphatase 129 U/L (46-116) H Total Protein 6.4 g/dL (6.4-8.2) Albumin 2.5 g/dL (3.4-5.0) L Salicylates Level 1.3 mg/dL (2.8-20.0) L Salicylate Last Dose Date 04/18/17 Salicylate Last Dose Time Unknown Acetaminophen Level 4.3 mcg/mL (10-30) L Acetaminophen Last Dose Date 04/18/17 Acetaminophen Last Dose Time Unknown Ethyl Alcohol Level < 10 mg/dL (0-10) Urine Collection Type Unknown Urine Color Yellow Urine Clarity Hazy Urine pH 5.5 Urine Specific [place] 1.015 Urine Protein >100 mg/dl (NEG-TRACE) Urine Glucose (UA) Neg mg/dL (NEG) Urine Ketones (Stick) Neg mg/dL (NEG) Urine Blood Small (NEG) Urine Nitrite Neg (NEG) Urine Bilirubin Neg (NEG) Urine Urobilinogen Dipstick 0.2 mg/dL (0.2 mg/dL) Urine Leukocyte Esterase Mod (NEG) Urine RBC 3-5 /HPF (0-2) Urine WBC 11-20 /HPF (0-4) Urine Squamous Epithelial Cells Occ /LPF Urine Amorphous Sediment Present /HPF Urine Bacteria Mod /HPF (0-FEW) Urine Mucus Slight /LPF Urine Opiates Screen Neg (NEG) Urine Methadone Screen Neg (NEG) Urine Barbiturates Neg (NEG) Urine Phencyclidine Screen Neg (NEG) Urine Amphetamine/Methamphetamine Neg (NEG) Urine Benzodiazepines Screen Neg (NEG) Urine Cocaine Screen Neg (NEG) Urine Cannabinoids Screen Neg (NEG) Urine Ethyl Alcohol Neg (NEG) Prothrombin Time 11.0 SEC (9.4-11.4) Prothrombin Time INR 1.1 (0.9-1.1) PTT 23 SEC (23-33) Creatine Kinase 67 U/L (39-308) Troponin I Quantitative 0.200 ng/mL (0-0.055) H 0.206 ng/mL (0-0.055) H KH-Dxa-R-Type Natriuretic Peptide 3195 pg/mL (0-449) H Valproic Acid Level 13 mcg/mL (50-100) L Valproic Acid Last Dose Date 04/18/2017 Valproic Acid Last Dose Time 0000 Triglycerides Level 24 mg/dL (0-150) Cholesterol Level 142 mg/dL (0-200) LDL Cholesterol, Calculated 72 mg/dL (0-100) VLDL Cholesterol, Calculated 4 mg/dL (0-40) Non-HDL Cholesterol Calculated 76 mg/dL (0-129) HDL Cholesterol 66 mg/dL (40-60) H Cholesterol/HDL Ratio 2.0 Test 04/19/17 08:05 04/19/17 11:04 04/19/17 14:10 PTT 121 SEC (23-33) H 92 SEC (23-33) H Troponin I Quantitative 0.210 ng/mL (0-0.055) H Current Medications: Meds: Current Medications Cephalexin HCl (Keflex) 500 mg 1X ONCE PO Last administered on 04/18/17at 23:55 ; Start 04/18/17 at 23:15; Stop 04/18/17 at 23:16; Status DC Heparin Sodium (Porcine) (Heparin Sodium) 4,000 unit 1X ONCE IV Last administered on 04/19/17at 01:18; Start 04/19/17 at 00:45; Stop 04/19/17 at 00:47 ; Status DC Heparin Sodium/ Dextrose 500 ml @ 0 mls/hr CONT PRN IV SEE I/O RECORD Last administered on 04/19/17at 02:16; Start 04/19/17 at 00:45 Ondansetron HCl (Zofran) 4 mg PRN Q4HRS PRN IV NAUSEA/VOMITING; Start 04/19/17 at 00:15; Stop 04/20/17 at 00:14 Morphine Sulfate (Morphine 2mg Syringe) 2 mg PRN Q2HR PRN IV PAIN Last administered on 04/19/17at 10:58; Start 04/19/17 at 00:15; Stop 04/20/17 at 00:14 Acetaminophen (Tylenol) 650 mg PRN Q4HRS PRN PO FEVER; Start 04/19/17 at 00:15 ; Stop 04/20/17 at 00:14; Status Cancel Nitroglycerin (Nitrostat) 0.4 mg PRN Q5MIN PRN SL CHEST PAIN; Start 04/19/17 at 00:15; Stop 04/20/17 at 00:14 Ceftriaxone Sodium 1 gm/ Sodium Chloride 50 ml @ 100 mls/hr DAILY IV ; Start at 09:00; Status UNV Ceftriaxone Sodium 1 gm/ Sodium Chloride 50 ml @ 100 mls/hr 1X ONCE IV Last administered on 04/19/17at 01:00; Start 04/19/17 at 00:45; Stop 04/19/17 at 01:14 ; Status DC Ceftriaxone Sodium (Rocephin) 1 gm STK-MED ONCE IVP ; Start 04/19/17 at 00:38; Stop 04/19/17 at 00:39; Status DC Furosemide (Lasix) 20 mg Q8HRS IVP Last administered on 04/19/17at 01:20; Start 04/19/17 at 06:00; Stop 04/19/17 at 06:00; Status DC Furosemide (Lasix) 20 mg Q8HRS IVP Last administered on 04/19/17at 06:06; Start 04/19/17 at 06:00 Ceftriaxone Sodium (Rocephin) 1 gm Q24H IVP ; Start 04/19/17 at 22:00 Aspirin (Aspirin Enteric Coated) 81 mg [id number] PO Last administered on at 10:41; Start 04/19/17 at 10:00 Amlodipine Besylate (Norvasc) 10 mg 1X ONCE PO Last administered on 04/19/17at 10:41; Start 04/19/17 at 10:30; Stop 04/19/17 at 10:31; Status DC Acetaminophen (Tylenol) 500 mg PRN Q6HRS PRN PO PAIN / TEMP Last administered on 04/19/17at 18:09; Start 04/19/17 at 12:45 Cyanocobalamin (Vitamin B-12) 1,000 mcg DAILY PO ; Start 04/20/17 at 09:00 Ferrous Sulfate (Feosol) 325 mg DAILY PO ; Start 04/20/17 at 09:00 Hydralazine HCl (Apresoline) 10 mg TID PO ; Start 04/19/17 at 14:00; Stop at 14:00; Status DC Memantine (Namenda) 10 mg DAILY PO ; Start 04/20/17 at 09:00 Sertraline HCl (Zoloft) 25 mg DAILY PO ; Start 04/20/17 at 09:00 Tramadol HCl (Ultram) 50 mg PRN Q12HR PRN PO PAIN; Start 04/19/17 at 12:45 Trazodone HCl (Desyrel) 50 mg PRN QHS PRN PO INSOMNIA; Start 04/19/17 at 12:45 Vitamin D (Vitamin D3) 1,000 unit DAILY PO ; Start 04/20/17 at 09:00 Divalproex Sodium (Depakote) 125 mg DAILY PO ; Start 04/20/17 at 09:00 Non-Formulary Medication 8.4 gm HS PO ; Start 04/19/17 at 21:00; Stop 04/19/17 at 21:00; Status DC Hydralazine HCl (Apresoline) 25 mg BID PO ; Start 04/19/17 at 12:45 Lactobacillus Rhamnosus (Culturelle) 1 cap BID PO ; Start 04/19/17 at 21:00 Active Scripts Active Reported Tylenol Extra Strength (Acetaminophen) 500 Mg Tablet 500 Mg PO PRN Q6HRS PRN Vitamin D (Cholecalciferol (Vitamin D3)) 1,000 Unit Capsule 1 Cap PO DAILY Vitamin B-12 (Cyanocobalamin (Vitamin B-12)) 1,000 Mcg Tablet 1,000 Mcg PO DAILY Divalproex Sodium 500 Mg Tablet.dr 125 Mg PO DAILY Ferrous Sulfate 325 Mg Tablet 1 Tab PO DAILY Furosemide 20 Mg Tablet 20 Mg PO DAILY Hydralazine Hcl 10 Mg Tablet 1 Tab PO TID Namenda (Memantine Hcl) 10 Mg Tablet 10 Mg PO DAILY Veltassa (Patiromer Calcium Sorbitex) 8.4 Gm Powd.pack 8.4 Gm PO HS Zoloft (Sertraline Hcl) 25 Mg Tablet 25 Mg PO DAILY Tramadol Hcl (Tramadol HCl) 50 Mg Tablet 50 Mg PO Q12HR PRN Trazodone Hcl 50 Mg Tablet 1 Tab PO PRN QHS I have reviewed the current psychotropics carefully including drug interactions. Risk benefit ratio favors no change other than as noted in my dictated progress note. Diagnosis: Problems: (1) Major depressive disorder, recurrent episode (2) Suicidal ideation (3) Elevated troponin (4) UTI (urinary tract infection) MINA BLAND MD Apr 19, 2017 18:24
--- NOTE | 2017-04-19 18:36 | HP ---
ADMIT DATE: 04/19/2017 REASON FOR ADMISSION: Elevated troponin, possibly acute coronary syndrome. HISTORY OF PRESENT ILLNESS: This is an 87-year-old male who was brought to the Emergency Room from [facility] after he was deferred from the CT. The patient had voiced some suicidal ideation and stated that he just did not want to live anymore and he is a total care patient and Etsfaye lift at the nursing facility and just basically wants to . The patient knows that he is not capable of doing that, but feels that he should be able to at least make that statement without being transported to the hospital. In the Emergency Room, he was very loud and a little bit angry, but after then overall calmed down. In the workup, he was found to have an elevated troponin and possibly some congestive heart failure. ALLERGIES: None. MEDICATIONS: Reviewed from the senior living. He is on chronic anticoagulation and numerous cardiac medications available on the MAR. PAST MEDICAL HISTORY: Chronic DVT, macular degeneration, vitamin B12 deficiency, history of UTI, chronic kidney disease stage 4, hypertension, bladder dysfunction with chronic Edgar, dementia, without behavior disturbance, major depression and cognitive communication deficit, also for all practical purposes has functional quadriplegia. SOCIAL HISTORY: Resides in a senior living. He is a nonsmoker, well, does not smoke there. Alcohol unknown. The patient is not communicative at the present time. REVIEW OF SYSTEMS: The patient is sleeping and unable to cooperate. OBJECTIVE: VITAL SIGNS: Blood pressure 187/89, pulse 53, respirations 14, pulse ox 100% on room air, temperature is 97. GENERAL: The patient's tongue is slightly dry. Skin is very aged with evidence of a long hard life in the sun. HEENT: Eyes were not examined though. LUNGS: Clear. CARDIOVASCULAR: Regular rhythm and rate. ABDOMEN: Soft, nontender. EXTREMITIES: Without edema. GENITOURINARY: Edgar catheter draining clear yellow urine. LABORATORY DATA: Hemoglobin 9.4, hematocrit 28.6. Troponin 0.200, 0.206, and 0.210 with a BNP of 3195. Drug screen, valproic acid is 13. Urinalysis 11-20 wbc's, negative nitrites, moderate leukocyte esterase, and the patient has been on heparin, and his ____ is 121. Chest x-ray shows some blunting of the costophrenic angle comparable with small amount of pleural fluid. Normal pulmonary vasculature. His other lab data is BUN is 70, creatinine 3.3, albumin 2.5. ASSESSMENT: 1. Chronic kidney disease stage 4. 2. Dehydration. 3. Severe protein-calorie malnutrition. 4. Elevated troponin, he is not a candidate for intervention at this time. 5. Depression with suicidal ideation. 6. Long-term use of anticoagulant. 7. Normochromic normocytic anemia. 8. Probably urinary tract infection. 9. Functional quadriplegia. The patient is a total Tesfaye lift. PLAN: Have Dr. Garcia see as the original reason was for suicidal ideation. Treat his medical conditions and find some old labs for comparison. MAL MARCOS DO DR: CÉSAR/emely JOB#: [id number] / [id number]
[2017-04-19] MEDS ORDERED: NON FORMULARY ITEM (Patiromer Calcium Sorbitex (Veltassa) 8.4 GM) PO SCH (21:00)
[2017-04-19] MEDS ORDERED: cefTRIAXone IV Push 1 GM VIAL. IVP SCH (22:00)
[2017-04-19] MEDS: LACTOBACILLUS RHAMNOSUS GG 1 CAPSULE. PO SCH (22:11)
[2017-04-20] VITALS (12 sets, daily range): BP systolic 92–163; BP diastolic 46–79
[2017-04-20 05:27] LABS: ALBUMIN 2.4 g/dL (3.4-5.0); ALBUMIN/GLOBULIN RATIO 0.6 (1.0-1.7); CALCIUM 8.7 mg/dL (8.5-10.1); CREATININE 3.3 mg/dL (0.7-1.3); GFR 17.7; POTASSIUM 4.7 mmol/L (3.5-5.1); TOTAL BILIRUBIN 0.1 mg/dL (0.2-1.0); TOTAL PROTEIN 6.4 g/dL (6.4-8.2)
[2017-04-20 05:29] LABS: BASO # 0.1 x10^3/uL (0.0-0.2); BASO % 1 % (0-3); EOS # 0.4 x10^3/uL (0.0-0.7); EOS % 7 % (0-3); HEMATOCRIT 29.1 % (39.0-53.0); HEMOGLOBIN 9.9 g/dL (13.0-17.5); LYMPH # 1.5 x10^3/uL (1.0-4.8); LYMPH % 26 % (24-48); MEAN CORPUSCULAR HEMOGLOBIN 34 pg (25-35); MEAN CORPUSCULAR HGB CONC 34 g/dL (31-37); MEAN CORPUSCULAR VOLUME 99 fL (79-100); MONO # 0.5 x10^3/uL (0.0-1.1); MONO % 10 % (0-9); NEUT # 3.2 x10^3uL (1.8-7.7); NEUT % 56 % (31-73); PLATELET COUNT 185 x10^3/uL (140-400); RED BLOOD COUNT 2.94 x10^6/uL (4.30-5.70); RED CELL DISTRIBUTION WIDTH 13.8 % (11.5-14.5); WHITE BLOOD COUNT 5.8 x10^3/uL (4.0-11.0)
[2017-04-20] MEDS: FUROSEMIDE 20 MG/2 ML VIAL IVP SCH (06:00)
[2017-04-20] MEDS: LACTOBACILLUS RHAMNOSUS GG 1 CAPSULE. PO SCH (08:36)
[2017-04-20] MEDS: ASPIRIN ENTERIC COATED 81 MG TABLET.DR. PO SCH (08:36)
[2017-04-20] MEDS: hydrALAZINE 25 MG TABLET PO SCH (08:37)
[2017-04-20] MEDS ORDERED: SERTRALINE 25 MG TABLET. PO SCH (09:00)
[2017-04-20] MEDS ORDERED: CYANOCOBALAMIN (VITAMIN B-12) 1,000 MCG TABLET. PO SCH (09:00)
[2017-04-20] MEDS ORDERED: MEMANTINE 10 MG TABLET. PO SCH (09:00)
[2017-04-20] MEDS ORDERED: CHOLECALCIFEROL (VITAMIN D3) 1,000 UNIT TABLET PO SCH (09:00)
[2017-04-20] MEDS ORDERED: FERROUS SULFATE 325 MG TABLET. PO SCH (09:00)
[2017-04-20] MEDS ORDERED: FUROSEMIDE 20 MG TABLET PO SCH (09:00)
[2017-04-20] MEDS ORDERED: DIVALPROEX SODIUM 125 MG TABLET.DR. PO SCH (09:00)
--- NOTE | 2017-04-20 13:58 | PDOC3 ---
Discharge Summary Visit Information Date of Admission: Apr 19, 2017 Date of Discharge: Apr 20, 2017 Final Diagnosis Problems Medical Problems: (1) CKD (chronic kidney disease), stage IV Status: Acute (2) Elevated troponin Status: Acute (3) Suicidal ideation Status: Acute (4) UTI (urinary tract infection) Status: Acute SSMENT: 1. Chronic kidney disease stage 4. 2. Dehydration. 3. Severe protein-calorie malnutrition. 4. Elevated troponin, he is not a candidate for intervention at this time. 5. Depression with suicidal ideation. 6. Long-term use of anticoagulant. 7. Normochromic normocytic anemia. 8. Probably urinary tract infection. 9. Functional quadriplegia. The patient is a total [employer]faye lift.t/Plan 1. Mildly elevated troponin - angina free. Not candidate for cardiac cath at this time due to renal function and psychological status. Continue medical therapy with aspirin, check lipids and add statin as indicated. No beta randal due to bradycardia. Check echo for LV function and wall motion. 2. accelerated hypertension - add hydralazine Problems: Problems: Brief Hospital Course Allergies Allergies Coded Allergies Type Severity Reaction Last Updated Verified No Known Drug Allergies 01/11/17 No Vital Signs Vital Signs Date Time Temp Pulse Resp B/P (MAP) Pulse Ox O2 Delivery O2 Flow Rate FiO2 04/20/17 11:30 73 163/63 (96) 98 Room Air 04/20/17 05:48 16 04/19/17 18:23 98.0 Lab Results Laboratory Tests Test 04/18/17 21:20 04/18/17 21:21 04/18/17 22:10 04/19/17 04:20 White Blood Count 5.8 x10^3/uL (4.0-11.0) Red Blood Count 2.86 x10^6/uL (4.30-5.70) Hemoglobin 9.4 g/dL (13.0-17.5) Hematocrit 28.6 % (39.0-53.0) Mean Corpuscular Volume 100 fL (79-100) Mean Corpuscular Hemoglobin 33 pg (25-35) Mean Corpuscular Hemoglobin Concent 33 g/dL (31-37) Red Cell Distribution Width 13.8 % (11.5-14.5) Platelet Count 180 x10^3/uL (140-400) Neutrophils (%) (Auto) 54 % (31-73) Lymphocytes (%) (Auto) 27 % (24-48) Monocytes (%) (Auto) 11 % (0-9) Eosinophils (%) (Auto) 7 % (0-3) Basophils (%) (Auto) 1 % (0-3) Neutrophils # (Auto) 3.1 x10^3uL (1.8-7.7) Lymphocytes # (Auto) 1.6 x10^3/uL (1.0-4.8) Monocytes # (Auto) 0.7 x10^3/uL (0.0-1.1) Eosinophils # (Auto) 0.4 x10^3/uL (0.0-0.7) Basophils # (Auto) 0.1 x10^3/uL (0.0-0.2) Sodium Level 140 mmol/L (136-145) Potassium Level 4.8 mmol/L (3.5-5.1) Chloride Level 106 mmol/L (98-107) Carbon Dioxide Level 24 mmol/L (21-32) Anion Gap 10 (6-14) Blood Urea Nitrogen 70 mg/dL (8-26) Creatinine 3.3 mg/dL (0.7-1.3) Estimated GFR (Cockcroft-Gault) 17.7 Glucose Level 171 mg/dL (70-99) Calcium Level 8.8 mg/dL (8.5-10.1) Total Bilirubin 0.2 mg/dL (0.2-1.0) Direct Bilirubin 0.1 mg/dL (0.0-0.2) Aspartate Amino Transf (AST/SGOT) 17 U/L (15-37) Alanine Aminotransferase (ALT/SGPT) 18 U/L (16-63) Alkaline Phosphatase 129 U/L (46-116) Total Protein 6.4 g/dL (6.4-8.2) Albumin 2.5 g/dL (3.4-5.0) Salicylates Level 1.3 mg/dL (2.8-20.0) Salicylate Last Dose Date 04/18/17 Salicylate Last Dose Time Unknown Acetaminophen Level 4.3 mcg/mL (10-30) Acetaminophen Last Dose Date 04/18/17 Acetaminophen Last Dose Time Unknown Ethyl Alcohol Level < 10 mg/dL (0-10) Urine Collection Type Unknown Urine Color Yellow Urine Clarity Hazy Urine pH 5.5 Urine Specific [place] 1.015 Urine Protein >100 mg/dl (NEG-TRACE) Urine Glucose (UA) Neg mg/dL (NEG) Urine Ketones (Stick) Neg mg/dL (NEG) Urine Blood Small (NEG) Urine Nitrite Neg (NEG) Urine Bilirubin Neg (NEG) Urine Urobilinogen Dipstick 0.2 mg/dL (0.2 mg/dL) Urine Leukocyte Esterase Mod (NEG) Urine RBC 3-5 /HPF (0-2) Urine WBC 11-20 /HPF (0-4) Urine Squamous Epithelial Cells Occ /LPF Urine Amorphous Sediment Present /HPF Urine Bacteria Mod /HPF (0-FEW) Urine Mucus Slight /LPF Urine Opiates Screen Neg (NEG) Urine Methadone Screen Neg (NEG) Urine Barbiturates Neg (NEG) Urine Phencyclidine Screen Neg (NEG) Urine Amphetamine/Methamphetamine Neg (NEG) Urine Benzodiazepines Screen Neg (NEG) Urine Cocaine Screen Neg (NEG) Urine Cannabinoids Screen Neg (NEG) Urine Ethyl Alcohol Neg (NEG) Prothrombin Time 11.0 SEC (9.4-11.4) Prothromb Time International Ratio 1.1 (0.9-1.1) Activated Partial Thromboplast Time 23 SEC (23-33) Creatine Kinase 67 U/L (39-308) Troponin I Quantitative 0.200 ng/mL (0-0.055) [id number]-[id number]-Type Natriuretic Peptide 3195 pg/mL (0-449) Valproic Acid (Depakene) Level 13 mcg/mL (50-100) Valproic Acid Last Dose Date 04/18/2017 Valproic Acid Last Dose Time 0000 Nasal Screen MRSA (PCR) Negative (Negative) Test 04/19/17 05:55 04/19/17 08:05 04/19/17 11:04 04/19/17 14:10 Troponin I Quantitative 0.206 ng/mL (0-0.055) 0.210 ng/mL (0-0.055) Triglycerides Level 24 mg/dL (0-150) Cholesterol Level 142 mg/dL (0-200) LDL Cholesterol, Calculated 72 mg/dL (0-100) VLDL Cholesterol, Calculated 4 mg/dL (0-40) Non-HDL Cholesterol Calculated 76 mg/dL (0-129) HDL Cholesterol 66 mg/dL (40-60) Cholesterol/HDL Ratio 2.0 Activated Partial Thromboplast Time 121 SEC (23-33) 92 SEC (23-33) Test 04/19/17 20:15 04/20/17 04:15 Activated Partial Thromboplast Time 70 SEC (23-33) 48 SEC (23-33) White Blood Count 5.8 x10^3/uL (4.0-11.0) Red Blood Count 2.94 x10^6/uL (4.30-5.70) Hemoglobin 9.9 g/dL (13.0-17.5) Hematocrit 29.1 % (39.0-53.0) Mean Corpuscular Volume 99 fL (79-100) Mean Corpuscular Hemoglobin 34 pg (25-35) Mean Corpuscular Hemoglobin Concent 34 g/dL (31-37) Red Cell Distribution Width 13.8 % (11.5-14.5) Platelet Count 185 x10^3/uL (140-400) Neutrophils (%) (Auto) 56 % (31-73) Lymphocytes (%) (Auto) 26 % (24-48) Monocytes (%) (Auto) 10 % (0-9) Eosinophils (%) (Auto) 7 % (0-3) Basophils (%) (Auto) 1 % (0-3) Neutrophils # (Auto) 3.2 x10^3uL (1.8-7.7) Lymphocytes # (Auto) 1.5 x10^3/uL (1.0-4.8) Monocytes # (Auto) 0.5 x10^3/uL (0.0-1.1) Eosinophils # (Auto) 0.4 x10^3/uL (0.0-0.7) Basophils # (Auto) 0.1 x10^3/uL (0.0-0.2) Sodium Level 143 mmol/L (136-145) Potassium Level 4.7 mmol/L (3.5-5.1) Chloride Level 109 mmol/L (98-107) Carbon Dioxide Level 24 mmol/L (21-32) Anion Gap 10 (6-14) Blood Urea Nitrogen 72 mg/dL (8-26) Creatinine 3.3 mg/dL (0.7-1.3) Estimated GFR (Cockcroft-Gault) 17.7 BUN/Creatinine Ratio 22 (6-20) Glucose Level 83 mg/dL (70-99) Calcium Level 8.7 mg/dL (8.5-10.1) Total Bilirubin 0.1 mg/dL (0.2-1.0) Aspartate Amino Transf (AST/SGOT) 16 U/L (15-37) Alanine Aminotransferase (ALT/SGPT) 16 U/L (16-63) Alkaline Phosphatase 81 U/L (46-116) Total Protein 6.4 g/dL (6.4-8.2) Albumin 2.4 g/dL (3.4-5.0) Albumin/Globulin Ratio 0.6 (1.0-1.7) Brief Hospital Course Mr. Smith is a 87 old [sex] who presented with [ ] HISTORY OF PRESENT ILLNESS: This is an 87-year-old male who was brought to the Emergency Room [facility] after he was deferred from the [facility]. The patient had voiced some suicidal ideation and stated that he just did not want to live anymore and he is a total care patient and [facility]faye lift at the nursing facility and just basically wants to . The patient knows that he is not capable of doing that, but feels that he should be able to at least make that statement without being transported to the hospital. In the Emergency Room, he was very loud and a little bit angry, but after then overall calmed down. In the workup, he was found to have an elevated troponin and possibly some congestive heart failure. He was seen by cardiology and psychiatry and had an uneventful stay. He was given some Lasix and after a long night of sleep he felt much better. He was frustrated at the time with his care and hence the suicidal statement. He was very appropriate her and sat up and ate without diffuculty. He was treated for a gm negative uti. Discharge Information Condition at Discharge: Improved, Stable Disposition/Orders: D/C to Another Facility Dischare Medications Current Medications Cephalexin HCl (Keflex) 500 mg 1X ONCE PO Last administered on 04/18/17at 23:55 ; Start 04/18/17 at 23:15; Stop 04/18/17 at 23:16; Status DC Heparin Sodium (Porcine) (Heparin Sodium) 4,000 unit 1X ONCE IV Last administered on 04/19/17at 01:18; Start 04/19/17 at 00:45; Stop 04/19/17 at 00:47 ; Status DC Heparin Sodium/ Dextrose 500 ml @ 0 mls/hr CONT PRN IV SEE I/O RECORD Last administered on 04/19/17at 22:27; Start 04/19/17 at 00:45; Stop 04/20/17 at 08:23 ; Status DC Ondansetron HCl (Zofran) 4 mg PRN Q4HRS PRN IV NAUSEA/VOMITING; Start 04/19/17 at 00:15; Stop 04/20/17 at 00:14; Status DC Morphine Sulfate (Morphine 2mg Syringe) 2 mg PRN Q2HR PRN IV PAIN Last administered on 04/19/17at 10:58; Start 04/19/17 at 00:15; Stop 04/20/17 at 00:14 ; Status DC Acetaminophen (Tylenol) 650 mg PRN Q4HRS PRN PO FEVER; Start 04/19/17 at 00:15 ; Stop 04/20/17 at 00:14; Status Cancel Nitroglycerin (Nitrostat) 0.4 mg PRN Q5MIN PRN SL CHEST PAIN; Start 04/19/17 at 00:15; Stop 04/20/17 at 00:14; Status DC Ceftriaxone Sodium 1 gm/ Sodium Chloride 50 ml @ 100 mls/hr DAILY IV ; Start at 09:00; Status UNV Ceftriaxone Sodium 1 gm/ Sodium Chloride 50 ml @ 100 mls/hr 1X ONCE IV Last administered on 04/19/17at 01:00; Start 04/19/17 at 00:45; Stop 04/19/17 at 01:14 ; Status DC Ceftriaxone Sodium (Rocephin) 1 gm STK-MED ONCE IVP ; Start 04/19/17 at 00:38; Stop 04/19/17 at 00:39; Status DC Furosemide (Lasix) 20 mg Q8HRS IVP Last administered on 04/19/17at 01:20; Start 04/19/17 at 06:00; Stop 04/19/17 at 06:00; Status DC Furosemide (Lasix) 20 mg Q8HRS IVP Last administered on 04/19/17at 22:02; Start 04/19/17 at 06:00; Stop 04/20/17 at 08:23; Status DC Ceftriaxone Sodium (Rocephin) 1 gm Q24H IVP Last administered on 04/19/17at 22: 02; Start 04/19/17 at 22:00 Aspirin (Aspirin Enteric Coated) 81 mg [id number] PO Last administered on at 08:36; Start 04/19/17 at 10:00 Amlodipine Besylate (Norvasc) 10 mg 1X ONCE PO Last administered on 04/19/17at 10:41; Start 04/19/17 at 10:30; Stop 04/19/17 at 10:31; Status DC Acetaminophen (Tylenol) 500 mg PRN Q6HRS PRN PO PAIN / TEMP Last administered on 04/19/17at 18:09; Start 04/19/17 at 12:45 Cyanocobalamin (Vitamin B-12) 1,000 mcg DAILY PO Last administered on at 08:36; Start 04/20/17 at 09:00 Ferrous Sulfate (Feosol) 325 mg DAILY PO Last administered on 04/20/17at 08:36; Start 04/20/17 at 09:00 Hydralazine HCl (Apresoline) 10 mg TID PO ; Start 04/19/17 at 14:00; Stop at 14:00; Status DC Memantine (Namenda) 10 mg DAILY PO Last administered on 04/20/17at 08:37; Start 04/20/17 at 09:00 Sertraline HCl (Zoloft) 25 mg DAILY PO Last administered on 04/20/17at 08:36; Start 04/20/17 at 09:00 Tramadol HCl (Ultram) 50 mg PRN Q12HR PRN PO PAIN; Start 04/19/17 at 12:45 Trazodone HCl (Desyrel) 50 mg PRN QHS PRN PO INSOMNIA; Start 04/19/17 at 12:45 Vitamin D (Vitamin D3) 1,000 unit DAILY PO Last administered on 04/20/17at 08:36 ; Start 04/20/17 at 09:00 Divalproex Sodium (Depakote) 125 mg DAILY PO Last administered on 04/20/17at 08: 37; Start 04/20/17 at 09:00 Non-Formulary Medication 8.4 gm HS PO ; Start 04/19/17 at 21:00; Stop 04/19/17 at 21:00; Status DC Hydralazine HCl (Apresoline) 25 mg BID PO Last administered on 04/20/17at 08:37 ; Start 04/19/17 at 12:45 Lactobacillus Rhamnosus (Culturelle) 1 cap BID PO Last administered on at 08:36; Start 04/19/17 at 21:00 Furosemide (Lasix) 20 mg DAILY PO Last administered on 04/20/17at 08:36; Start 04/20/17 at 09:00 Atorvastatin Calcium (Lipitor) 20 mg QHS PO ; Start 04/20/17 at 21:00 Fosfomycin Tromethamine (Monurol) 3 gm 1X ONCE PO ; Start 04/20/17 at 13:45; Stop 04/20/17 at 13:46; Status UNV Active Scripts Active Reported Tylenol Extra Strength (Acetaminophen) 500 Mg Tablet 500 Mg PO PRN Q6HRS PRN Vitamin D (Cholecalciferol (Vitamin D3)) 1,000 Unit Capsule 1 Cap PO DAILY Vitamin B-12 (Cyanocobalamin (Vitamin B-12)) 1,000 Mcg Tablet 1,000 Mcg PO DAILY Divalproex Sodium 500 Mg Tablet.dr 125 Mg PO DAILY Ferrous Sulfate 325 Mg Tablet 1 Tab PO DAILY Furosemide 20 Mg Tablet 20 Mg PO DAILY Hydralazine Hcl 10 Mg Tablet 1 Tab PO TID Namenda (Memantine Hcl) 10 Mg Tablet 10 Mg PO DAILY Veltassa (Patiromer Calcium Sorbitex) 8.4 Gm Powd.pack 8.4 Gm PO HS Zoloft (Sertraline Hcl) 25 Mg Tablet 25 Mg PO DAILY Tramadol Hcl (Tramadol HCl) 50 Mg Tablet 50 Mg PO Q12HR PRN Trazodone Hcl 50 Mg Tablet 1 Tab PO PRN QHS Patient Instructions Patient Instuctions Discharge back to [facility] facility. At this time family declines to send to [facility] and he does not appear to be suicidal. MAL MARCOS DO Apr 20, 2017 13:58
[2017-04-20] MEDS ORDERED: FOSFOMYCIN TROMETHAMINE 3 GM PACKET PO ONE (14:00)
--- NOTE | 2017-04-20 15:48 | NUR ---
Discharge: Spoke with Anni at [facility]. Anni set up a hot die picker time of [phone]. [phone]. Report called to [facility] at [phone]. Patients and daughter notified of discharge. Belongings with patient. Will continue to monitor.
--- NOTE | 2017-04-20 17:32 | NUR ---
Discharge: Assisted patient with dressing and to wheelchair via Tesfaye lift. Belongings with patient. Patient reported a pair of pants missing. Patient assisted off of unit via wheelchair accompanied by transport.
[2017-04-20] MEDS ORDERED: ATORVASTATIN CALCIUM 20 MG TABLET PO SCH (21:00)
--- NOTE | 2017-04-21 20:12 | CONS ---
DATE OF CONSULTATION: 04/19/2017 This is a late entry for 04/19/2017 and covers the elements not covered in my initial note of 04/19/2017 HISTORY OF PRESENT ILLNESS: The patient was seen individually evening of 04/19/2017 on ICU bed for [facility] as requested by Dr. Wei/Dr Duron. CHIEF COMPLAINT: "Yes, I said I was suicidal, but I will not try to hurt myself." HISTORY OF PRESENT ILLNESS: The patient currently resides at the [facility] in [place], [place]. We were initially contacted by them as the patient had voiced suicidal ideation, appeared quite depressed. He was brought to the Emergency Room because he had told the staff he wanted to kill himself. In the ER, he was found to have elevated troponin, UTI and a history of chronic kidney disease stage IV. He was transferred to the ICU where he was being medically stabilized and I have been asked to consult given his suicidal ideation. The patient does admit to being somewhat withdrawn, minimizes being depressed and minimizes the suicidal statements he made at the assisted. No clear psychotic symptoms. The patient states he did not want to live anymore because he is total care with a Tesfaye lift at the nursing facility. In the ER, he was very loud and angry, but then calmed down. He did have congestive heart failure and elevated troponin. PAST PSYCHIATRIC HISTORY: As above. MEDICAL HISTORY: He is on chronic anticoagulation, numerous cardiac medications available on the MAY. Positive history of chronic DVT, macular degeneration, B12 deficiency, history of UTI, chronic kidney disease stage IV, hypertension, bladder dysfunction, chronic Edgar, major depression, cognitive communication deficits, functional quadriplegia. ALLERGIES: Negative. 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 MENTAL STATUS EXAM: The patient was seen individually evening of 04/19/2017. He is lying in bed, somewhat withdrawn. Speech moderate latency, often responses low in rate and rhythm, low in volume. He minimizes being depressed, but affect appears withdrawn, somewhat dysphoric. No active suicidal ideation. Does have short term memory deficits. Attention span short. Language function intact. LABORATORY DATA: Reviewed. IMPRESSION: Major depressive disorder; major neurocognitive disorder, early vascular with depression. Rest as above. PLAN: From a psychiatric standpoint, I would recommend once he is medically stable, the patient should be reassessed for suicide risk and symptoms of depression reevaluated at that time. If these are evident, he will need transfer to the [facility], but otherwise he may return back to the assisted if not deemed a danger to himself. Dr. Duron, thank you for the opportunity to participate in your patient's care. We will follow with you. MAN Margarita BLAND MD DR: CALVIN/emely JOB#: [id number] / [id number]
== END 2017-04-20 17:34 | disposition home or self-care (01) | DRG 689 ==
LOC: ER 20:51 → ICU 04-19 00:01
PROVIDERS: ADMIT Family Medicine; ATTEND Family Medicine
DX: N39.0 Urinary tract infection, site not specified (principal); E43 Unspecified severe protein-calorie malnutrition; N18.4 Chronic kidney disease, stage 4 (severe); I13.0 Hypertensive heart and chronic kidney disease with heart failure and stage 1 through stage 4 chronic kidney disease, or unspecified chronic kidney disease; E86.0 Dehydration; D64.9 Anemia, unspecified; R45.851 Suicidal ideations; I50.9 Heart failure, unspecified; R53.2 Functional quadriplegia; F33.9 Major depressive disorder, recurrent, unspecified; F01.50 Vascular dementia, unspecified severity, without behavioral disturbance, psychotic disturbance, mood disturbance, and anxiety; H35.00 Unspecified background retinopathy; H35.30 Unspecified macular degeneration; H40.9 Unspecified glaucoma; G47.00 Insomnia, unspecified; I70.0 Atherosclerosis of aorta; N31.9 Neuromuscular dysfunction of bladder, unspecified; Z66 Do not resuscitate; Z79.01 Long term (current) use of anticoagulants; Z79.899 Other long term (current) drug therapy; Z85.828 Personal history of other malignant neoplasm of skin; Z87.440 Personal history of urinary (tract) infections; Z68.28 Body mass index [BMI] 28.0-28.9, adult; Z86.718 Personal history of other venous thrombosis and embolism; Z79.4 Long term (current) use of insulin
CPT/HCPCS: 36415; 71045; 80048; 80053; 80061; 80076; 80164; 80307; 81001; 82550; 83880; 84484; 85025; 85610; 85730; 87086; 87186; 87641; 93005; G0480; J0696; J1644; J1940; J2270; G0479